=== PATIENT | female | born 1980 | race Hispanic/Latino ===

== ENCOUNTER 2018-04-09 05:49 | Observation (INO) | payer BC ==
[~2018-04-09] VITALS: Ht 167.6 cm; Wt 80.3 kg
[2018-04-09] VITALS (7 sets, daily range): BP systolic 108–118; BP diastolic 63–72
[~2018-04-09 05:49] MED LIST: LINZESS PO; OXYBUTYNIN CHLOR5 M1 PO; VIT D PO
--- OUTSIDE RECORDS SUMMARY | 2018-04-09 05:53 | XMS REPORT | CCD ---
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 Phone Emmanuel Alford CP Allergies, Adverse Reactions, Alerts Substance Reaction Status NKDA Active Medications Medication Instructions Start Date End Date Status ferrous sulfate 325 mg, 1 tab, Route: PO, Drug 07/11/2012 07/12/2012 Discontinued form: ECTAB, BID, Dosing Weight 81.818, kg, Start date: 07/11/12 17:00:00, Duration: 30 day, Stop date: 08/10/12 9:00:00 Zofran 4 mg, 2 mL, Route: IVP, Drug form: 07/10/2012 07/12/2012 Discontinued INJ, PRN, PRN Nausea, Start date: 07/10/12 10:03:00, Duration: 24 hr, Stop date: 07/17/12 10:02:00 naloxone 0.4 mg, 1 mL, Route: IVP, Drug 07/10/2012 07/12/2012 Discontinued form: INJ, PRN, PRN Narcotic Reversal, Start date: 07/10/12 10:03:00, Duration: 24 hr, Stop date: 07/17/12 10:02:00 Motrin 600 mg, 1 tab, Route: PO, Drug 07/10/2012 07/12/2012 Discontinued form: TAB, Q6H-02, Start date: 07/10/12 14:00:00, Duration: 24 hr, Stop date: 07/17/12 8:00:00 ketorolac 30 mg/mL 30 mg, 1 mL, Route: IVP, Drug form: 07/10/2012 07/10/2012 Completed injectable solution INJ, Q6H-02, Start date: 07/10/12 14:00:00, Duration: 2 doses or times, Stop date: 07/10/12 20:00:00 PNV-DHA Plus 1 cap, Route: PO, Drug Form: CAP, 07/11/2012 07/10/2012 Discontinued Dosing Weight 81.818, kg, Daily, Start date: 07/11/12 9:00:00, Duration: 30 day, Stop date: 08/09/12 9:00:00 PNV-DHA Plus oral Substitution Allowed, Maintenance 07/10/2012 Ordered capsule [place]ama 5/325 oral 1-2 tab, PO, Q4-6H, PRN, 30 tab, 07/12/2012 07/17/2012 Ordered tablet Pain, Substitution Allowed, Maintenance ibuprofen 600 mg 600 mg, PO, Q6H, PRN, Take with 07/12/2012 07/20/2012 Ordered oral tablet food, 30 tab, Pain, Substitution Allowed Take with food Colace 100 mg oral 100 mg, 1 cap, PO, BID, PRN, 20 07/12/2012 Ordered capsule cap, Constipation, Substitution Allowed, CAP Phenergan 12.5 mg, Route: IVPB, ONCE, Dosing 07/10/2012 07/10/2012 Completed Weight 81.818, kg, Start date: 07/10/12 13:01:00, Stop date: 07/10/12 13:01:00 Saline Flush 0.9% 5 ml, Route: IVP, Drug Form: INJ, 07/10/2012 07/12/2012 Discontinued Dosing Weight 81.818, kg, PRN, PRN Line Flush, Start date: 07/10/12 9:22:00, Duration: 30 day, Stop date: 08/09/12 9:21:00 Saline Flush 0.9% 5 ml, Route: IVP, Drug Form: INJ, 07/10/2012 07/12/2012 Discontinued Dosing Weight 81.818, kg, Q12H, Start date: 07/10/12 21:00:00, Duration: 30 day, Stop date: 08/09/12 9:00:00 1 tab, Route: PO, Drug Form: TAB, 07/11/2012 07/12/2012 Discontinued Multivitamins oral Dosing Weight 81.818, kg, Daily, tablet Start date: 07/11/12 9:00:00, Duration: 30 day, Stop date: 08/09/12 9:00:00 lanolin topical 1 appl, Route: TOP, PRN, Drug form: 07/10/2012 07/12/2012 Discontinued cream OINT, PRN Other -See Comment, Start date: 07/10/12 9:22:00, Duration: 30 day, Stop date: 08/09/12 9:21:00 acetaminophen 650 mg, 20.3 mL, Route: PO, Drug 07/10/2012 07/12/2012 Discontinued form: LIQ, Q4H, Dosing Weight 81.818, kg, PRN Other -See Comment, Start date: 07/10/12 9:22:00, Duration: 30 day, Stop date: 08/09/12 9:21:00 zolpidem 5 mg, 1 tab, Route: PO, Drug form: 07/10/2012 07/12/2012 Discontinued TAB, Bedtime, Dosing Weight 81.818, kg, PRN Insomnia, Start date: 07/10/12 9:22:00, Duration: 30 day, Stop date: 08/09/12 9:21:00 simethicone 160 mg, 2 tab, Route: PO, Drug 07/10/2012 07/12/2012 Discontinued form: CHEWTAB, Q8H, Dosing Weight 81.818, kg, PRN Gas, Start date: 07/10/12 9:22:00, Duration: 30 day, Stop date: 08/09/12 9:21:00 M-M-R II 0.5 ml, Route: SUB-Q, Drug Form: 07/10/2012 07/12/2012 Discontinued PDR/INJ, Dosing Weight 81.818, kg, ONCALL, Start date: 07/10/12 10:00:00, Duration: 1 doses or times, Stop date: 07/11/12 0:00:00 cefazolin 2 gm, 100 mL, Route: IVPB, Drug 07/10/2012 07/10/2012 Completed form: INJ, ONCALL, Dosing Weight 81.818, kg, Start date: 07/10/12 7:00:00, Duration: 1 doses or times azithromycin 500 mg, Route: IVPB, Drug form: 07/10/2012 07/10/2012 Completed PDR/INJ, ONCALL, Dosing Weight 81.818, kg, Start date: 07/10/12 7:00:00, Duration: 1 doses or times acetaminophen-hydroc 1 tab, Route: PO, Drug Form: TAB, 07/10/2012 07/12/2012 Discontinued odone 325 mg-5 mg Dosing Weight 81.818, kg, Q4H, PRN oral tablet Pain Score 1-3, Start date: 07/10/12 9:22:00, Duration: 30 day, Stop date: 08/09/12 9:21:00 acetaminophen-hydroc 2 tab, Route: PO, Drug Form: TAB, 07/10/2012 07/12/2012 Discontinued odone 325 mg-5 mg Dosing Weight 81.818, kg, Q4H, PRN oral tablet Pain Score 4-6, Start date: 07/10/12 9:22:00, Duration: 30 day, Stop date: 08/09/12 9:21:00 ibuprofen 800 mg, 1 tab, Route: PO, Drug 07/10/2012 07/12/2012 Discontinued form: TAB, Q8H, Dosing Weight 81.818, kg, PRN Other -See Comment, Start date: 07/10/12 9:22:00, Duration: 30 day, Stop date: 08/09/12 9:21:00 bisacodyl 15 mg, 3 tab, Route: PO, Drug form: 07/10/2012 07/12/2012 Discontinued ECTAB, Daily, Dosing Weight 81.818, kg, PRN Other -See Comment, Start date: 07/10/12 9:22:00, Duration: 30 day, Stop date: 08/09/12 9:21:00 bisacodyl 10 mg, 1 supp, Route: UT, Drug 07/10/2012 07/12/2012 Discontinued form: SUPP, PRN, Dosing Weight 81.818, kg, PRN Other -See Comment, Start date: 07/10/12 9:22:00, Duration: 30 day, Stop date: 08/09/12 9:21:00 Lactated Ringers 20 unit, 1,000 mL, Rate: 125 ml/hr, 07/10/2012 07/11/2012 Completed 1000ml+Pitocin 20 Infuse over: 8 hr, Dosing Weight units IV (Premix) 20 81.818, kg, Route: IV, Total unit Volume: 1,000 mL, Start date: 07/10/12 9:22:00, Duration: 2 doses or times, Stop date: 07/11/12 1:21:00, Replace Every: 8 hr Lactated Ringers IV 1,000 mL, Rate: 100 ml/hr, Infuse 07/10/2012 07/12/2012 Discontinued 1,000 mL over: 10 hr, Route: IV, Dosing Weight 81.818 kg, Total Volume: 1,000, Start date: 07/10/12 9:22:00, Duration: 30 day, Stop date: 08/09/12 9:21:00, PRN to maintain IV access Lactated Ringers 1,000 mL, Rate: 125 ml/hr, Infuse 07/10/2012 07/10/2012 Discontinued Injection IV 1,000 over: 8 hr, Route: IV, Dosing mL Weight 81.818 kg, Total Volume: 1,000, Start date: 07/10/12 6:48:00, Duration: 30 day, Stop date: 08/09/12 6:47:00 carboprost 250 microgram, 1 mL, Route: IM, 07/10/2012 07/10/2012 Discontinued Drug form: INJ, ONCALL, Dosing Weight 81.818, kg, Start date: 07/10/12 7:00:00, Duration: 30 day, Stop date: 08/09/12 6:59:00 methylergonovine 0.2 mg, 1 mL, Route: IM, Drug form: 07/10/2012 07/10/2012 Discontinued INJ, ONCALL, Dosing Weight 81.818, kg, Start date: 07/10/12 7:00:00, Duration: 30 day, Stop date: 08/09/12 6:59:00 citric acid-sodium 30 ml, Route: PO, Drug Form: SOLN, 07/10/2012 07/10/2012 Discontinued citrate Dosing Weight 81.818, kg, ONCE, Start date: 07/10/12 6:48:00, Duration: 1 doses or times, Stop date: 07/10/12 6:48:00 misoprostol 1,000 microgram, 5 tab, Route: UT, 07/10/2012 07/10/2012 Discontinued Drug form: TAB, ONCALL, Dosing Weight 81.818, kg, Start date: 07/10/12 7:00:00, Duration: 30 day, Stop date: 08/09/12 6:59:00 metoclopramide 10 mg, 2 mL, Route: IVP, Drug form: 07/10/2012 07/10/2012 Discontinued ALFREDO RAMIREZ, Dosing Weight 81.818, kg, Start date: 07/10/12 7:00:00, Duration: 30 day, Stop date: 08/09/12 6:59:00 Lactated Ringers 20 unit, 1,000 mL, Rate: 125 ml/hr, 07/10/2012 07/10/2012 Discontinued 1000ml+Oxytocin 20 Infuse over: 8 hr, Dosing Weight units IV (Premix) 20 81.818, kg, Route: IV, Total unit Volume: 1,000 mL, Start date: 07/10/12 6:48:00, Duration: 2 day, Stop date: 07/12/12 6:47:00, Replace Every: 8 hr terbutaline 0.25 mg, 0.25 mL, Route: SUB-Q, 07/10/2012 07/10/2012 Discontinued Drug form: INJ, ONCALL, Dosing Weight 81.818, kg, PRN Other -See Comment, Start date: 07/10/12 6:48:00, Duration: 1 doses or times, Stop date: Limited # of times ondansetron 4 mg, 2 mL, Route: IVP, Drug form: 07/10/2012 07/10/2012 Discontinued INJ, Q8H, Dosing Weight 81.818, kg, PRN Nausea & Vomiting, Start date: 07/10/12 6:48:00, Duration: 30 day, Stop date: 08/09/12 6:47:00 morphine Sulfate 2 mg, 1 mL, Route: IVP, Drug form: 07/10/2012 07/10/2012 Discontinued INJ, Q2H, Dosing Weight 81.818, kg, PRN Pain Score 6-10, Start date: 07/10/12 6:48:00, Duration: 30 day, Stop date: 08/09/12 6:47:00 Vital Signs Most recent to oldest [Reference Range]: 1 Height 167.64 cm (07/10/2012 06:46:00) Weight 81.818 kg (07/10/2012 06:46:00) Results BLOOD BANK RESULTS Most recent to oldest [Reference Range]: 1 2 ABO/Rh A POS *Unknown* (07/10/2012 07:15:00) Antibody Scrn Negative (07/10/2012 07:15:00) HEMATOLOGY Most recent to oldest [Reference Range]: 1 2 WBC [3.7-10.4 K/CMM] 9.9 K/CMM (07/10/2012 07:06:00) RBC [4.20-5.40 M/CMM] 4.41 M/CMM (07/10/2012 07:06:00) Hgb [12.0-16.0 g/dL] 9.5 g/dL *LOW* (07/11/2012 03:50:45) 12.0 g/dL (07/10/2012 07:06:00) Hct [36.0-48.0 %] 29.1 % *LOW* (07/11/2012 03:50:45) 35.5 % *LOW* (07/10/2012 07:06:00) MCV [81.0-99.0 fL] 80.6 fL *LOW* (07/10/2012 07:06:00) MCH [27.0-31.0 pg] 27.2 pg (07/10/2012 07:06:00) MCHC [32.0-36.0 g/dL] 33.7 g/dL (07/10/2012 07:06:00) RDW [11.5-14.5 %] 14.6 % *HI* (07/10/2012 07:06:00) Platelet [133-450 K/CMM] 210 K/CMM (07/10/2012 07:06:00) MPV [7.4-10.4 fL] 9.2 fL (07/10/2012 07:06:00) Segs [45.0-75.0 %] 54.9 % (07/10/2012 07:06:00) Lymphocytes [20.0-40.0 %] 30.4 % (07/10/2012 07:06:00) Monocytes [2.0-12.0 %] 11.8 % (07/10/2012 07:06:00) Eosinophils [0.0-4.0 %] 2.9 % (07/10/2012 07:06:00) Segs-Bands # [1.5-8.1 K/CMM] 5.4 K/CMM (07/10/2012 07:06:00) Lymphocytes # [1.0-5.5 K/CMM] 3.0 K/CMM (07/10/2012 07:06:00) Monocytes # [0.0-0.8 K/CMM] 1.2 K/CMM *HI* (07/10/2012 07:06:00) Eosinophils # [0.0-0.5 K/CMM] 0.3 K/CMM (07/10/2012 07:06:00) IMMUNOLOGY Most recent to oldest [Reference Range]: 1 2 RPR [Non Reactive] Non Reactive (07/10/2012 07:06:00) HIV 1/2 Ab (LD) [Negative] Negative *NA* (07/10/2012 07:06:00) Hep Bs Ag [Negative] Negative *NA* (07/10/2012 07:06:00)
--- OUTSIDE RECORDS SUMMARY | 2018-04-09 05:53 | XMS REPORT ---
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
--- OUTSIDE RECORDS SUMMARY | 2018-04-09 05:53 | XMS REPORT | Continuity of Care Document ---
Author Author [facility] Interface Address Unknown Phone Unavailable Problems Problem Status Onset Date Classification Date Reported Comments Source DX: N92.0 Active 02/17/2018 [facility] Active 01/16/2012 [facility] Family history of colon cancer Active Problem 01/14/2018 [facility] Constipation, unspecified constipation type Active Problem 01/14/2018 [facility] OAB Active Problem 01/14/2018 [facility] Migraine without aura and without status migrainosus, not intractable Active Problem 01/14/2018 [facility] DELIV NOS-UNSP Active [facility] Medications Medication Details Route Status Patient Instructions Ordering Provider Order Date Source [place] 5/325 oral tablet 1-2 tab, PO, Q4-6H, PRN, 30 tab, Pain, Substitution Allowed, Maintenance PO Active Prashanth 07/12/2012 [facility] Colace 100 mg oral capsule 100 mg, 1 cap, PO, BID, PRN, 20 cap, Constipation, Substitution Allowed, CAP PO Active Prashanth 07/12/2012 [facility] ibuprofen 600 mg oral tablet 600 mg, PO, Q6H, PRN, Take with food, 30 tab, Pain, Substitution AllowedTake with food PO Active Prashanth 07/12/2012 [facility] ferrous sulfate 325 mg, 1 tab, Route: PO, Drug form: ECTAB, BID, Dosing Weight 81.818, kg, Start date: 07/11/12 17:00:00, Duration: 30 day, Stop date: 08/10/12 9:00:00 PO No Longer Active Ezedinma 07/11/2012 [facility] PNV-DHA Plus 1 cap, Route: PO, Drug Form: CAP, Dosing Weight 81.818, kg, Daily, Start date: 07/11/12 9:00:00, Duration: 30 day, Stop date: 08/09/12 9:00:00 PO No Longer Active Prashanth 07/11/2012 [facility] Multivitamins oral tablet 1 tab, Route: PO, Drug Form: TAB, Dosing Weight 81.818, kg, Daily, Start date: 07/11/12 9:00:00, Duration: 30 day, Stop date: 08/09/12 9:00:00 PO No Longer Active Ezedinma 07/11/2012 [facility] Saline Flush 0.9% 5 ml, Route: IVP, Drug Form: INJ, Dosing Weight 81.818, kg, Q12H, Start date: 07/10/12 21:00:00, Duration: 30 day, Stop date: 08/09/12 9:00:00 IVP No Longer Active Ezedinma 07/11/2012 [facility] Motrin 600 mg, 1 tab, Route: PO, Drug form: TAB, Q6H-02, Start date: 07/10/12 14:00:00, Duration: 24 hr, Stop date: 07/17/12 8:00:00 PO No Longer Active Prashanth 07/10/2012 [facility] ketorolac 30 mg/mL injectable solution 30 mg, 1 mL, Route: IVP, Drug form: INJ, Q6H-02, Start date: 07/10/12 14:00:00, Duration: 2 doses or times, Stop date: 07/10/12 20:00:00 IVP No Longer Active Prashanth 07/10/2012 [facility] Phenergan 12.5 mg, Route: IVPB, ONCE, Dosing Weight 81.818, kg, Start date: 07/10/12 13:01:00, Stop date: 07/10/12 13:01:00 IVPB No Longer Active Dais 07/10/2012 [facility] PNV-DHA Plus oral capsule Substitution Allowed, Maintenance Active Prashanth 07/10/2012 [facility] Zofran 4 mg, 2 mL, Route: IVP, Drug form: INJ, PRN, PRN Nausea, Start date: 07/10/12 10:03:00, Duration: 24 hr, Stop date: 07/17/12 10:02:00 IVP No Longer Active Prashanth 07/10/2012 [facility] naloxone 0.4 mg, 1 mL, Route: IVP, Drug form: INJ, PRN, PRN Narcotic Reversal, Start date: 07/10/12 10:03:00, Duration: 24 hr, Stop date: 07/17/12 10:02:00 IVP No Longer Active Prashanth 07/10/2012 [facility] M-M-R II 0.5 ml, Route: SUB-Q, Drug Form: PDR/INJ, Dosing Weight 81.818, kg, ONCALL, Start date: 07/10/12 10:00:00, Duration: 1 doses or times, Stop date: 07/11/12 0:00:00 SUB-Q No Longer Active Ezedinma 07/10/2012 [facility] Saline Flush 0.9% 5 ml, Route: IVP, Drug Form: INJ, Dosing Weight 81.818, kg, PRN, PRN Line Flush, Start date: 07/10/12 9:22:00, Duration: 30 day, Stop date: 08/09/12 9:21:00 IVP No Longer Active Ezedinma 07/10/2012 [facility] lanolin topical cream 1 appl, Route: TOP, PRN, Drug form: OINT, PRN Other -See Comment, Start date: 07/10/12 9:22:00, Duration: 30 day, Stop date: 08/09/12 9:21:00 TOP No Longer Active Ezedinma 07/10/2012 [facility] acetaminophen 650 mg, 20.3 mL, Route: PO, Drug form: LIQ, Q4H, Dosing Weight 81.818, kg, PRN Other -See Comment, Start date: 07/10/12 9:22:00, Duration: 30 day, Stop date: 08/09/12 9:21:00 PO No Longer Active Ezedinma 07/10/2012 [facility] zolpidem 5 mg, 1 tab, Route: PO, Drug form: TAB, Bedtime, Dosing Weight 81.818, kg, PRN Insomnia, Start date: 07/10/12 9:22:00, Duration: 30 day, Stop date: 08/09/12 9:21:00 PO No Longer Active Ezedinma 07/10/2012 [facility] simethicone 160 mg, 2 tab, Route: PO, Drug form: CHEWTAB, Q8H, Dosing Weight 81.818, kg, PRN Gas, Start date: 07/10/12 9:22:00, Duration: 30 day, Stop date: 08/09/12 9:21:00 PO No Longer Active Ezedinma 07/10/2012 [facility] acetaminophen-hydrocodone 325 mg-5 mg oral tablet 1 tab, Route: PO, Drug Form: TAB, Dosing Weight 81.818, kg, Q4H, PRN Pain Score 1-3, Start date: 07/10/12 9:22:00, Duration: 30 day, Stop date: 08/09/12 9:21:00 PO No Longer Active Ezedinma 07/10/2012 [facility] ibuprofen 800 mg, 1 tab, Route: PO, Drug form: TAB, Q8H, Dosing Weight 81.818, kg, PRN Other -See Comment, Start date: 07/10/12 9:22:00, Duration: 30 day, Stop date: 08/09/12 9:21:00 PO No Longer Active Ezedinma 07/10/2012 [facility] bisacodyl 15 mg, 3 tab, Route: PO, Drug form: ECTAB, Daily, Dosing Weight 81.818, kg, PRN Other -See Comment, Start date: 07/10/12 9:22:00, Duration: 30 day, Stop date: 08/09/12 9:21:00 PO No Longer Active Ezedinma 07/10/2012 [facility] Lactated Ringers 1000ml+Pitocin 20 units IV (Premix) 20 unit 20 unit, 1,000 mL, Rate: 125 ml/hr, Infuse over: 8 hr, Dosing Weight 81.818, kg, Route: IV, Total Volume: 1,000 mL, Start date: 07/10/12 9:22:00, Duration: 2 doses or times, Stop date: 07/11/12 1:21:00, Replace Every: 8 hr IV No Longer Active Ezedinma 07/10/2012 [facility] Lactated Ringers IV 1,000 mL 1,000 mL, Rate: 100 ml/hr, Infuse over: 10 hr, Route: IV, Dosing Weight 81.818 kg, Total Volume: 1,000, Start date: 07/10/12 9:22:00, Duration: 30 day, Stop date: 08/09/12 9:21:00, PRN to maintain IV access IV No Longer Active Ezedinma 07/10/2012 [facility] cefazolin 2 gm, 100 mL, Route: IVPB, Drug form: INJ, ONCALL, Dosing Weight 81.818, kg, Start date: 07/10/12 7:00:00, Duration: 1 doses or times IVPB No Longer Active Prashanth 07/10/2012 [facility] azithromycin 500 mg, Route: IVPB, Drug form: PDR/INJ, ONCALL, Dosing Weight 81.818, kg, Start date: 07/10/12 7:00:00, Duration: 1 doses or times IVPB No Longer Active Prashanth 07/10/2012 [facility] carboprost 250 microgram, 1 mL, Route: IM, Drug form: INJ, ONCALL, Dosing Weight 81.818, kg, Start date: 07/10/12 7:00:00, Duration: 30 day, Stop date: 08/09/12 6:59:00 IM No Longer Active Prashanth 07/10/2012 [facility] methylergonovine 0.2 mg, 1 mL, Route: IM, Drug form: INJ, ONCALL, Dosing Weight 81.818, kg, Start date: 07/10/12 7:00:00, Duration: 30 day, Stop date: 08/09/12 6:59:00 IM No Longer Active Prashanth 07/10/2012 [facility] misoprostol 1,000 microgram, 5 tab, Route: MT, Drug form: TAB, ONCALL, Dosing Weight 81.818, kg, Start date: 07/10/12 7:00:00, Duration: 30 day, Stop date: 08/09/12 6:59:00 MT No Longer Active Prashanth 07/10/2012 [facility] metoclopramide 10 mg, 2 mL, Route: IVP, Drug form: INJ, ONCALL, Dosing Weight 81.818, kg, Start date: 07/10/12 7:00:00, Duration: 30 day, Stop date: 08/09/12 6:59:00 IVP No Longer Active Prashanth 07/10/2012 [facility] Lactated Ringers Injection IV 1,000 mL 1,000 mL, Rate: 125 ml/hr, Infuse over: 8 hr, Route: IV, Dosing Weight 81.818 kg, Total Volume: 1,000, Start date: 07/10/12 6:48:00, Duration: 30 day, Stop date: 08/09/12 6:47:00 IV No Longer Active Prashanth 07/10/2012 [facility] citric acid-sodium citrate 30 ml, Route: PO, Drug Form: SOLN, Dosing Weight 81.818, kg, ONCE, Start date: 07/10/12 6:48:00, Duration: 1 doses or times, Stop date: 07/10/12 6:48:00 PO No Longer Active Prashanth 07/10/2012 [facility] Lactated Ringers 1000ml+Oxytocin 20 units IV (Premix) 20 unit 20 unit, 1,000 mL, Rate: 125 ml/hr, Infuse over: 8 hr, Dosing Weight 81.818, kg, Route: IV, Total Volume: 1,000 mL, Start date: 07/10/12 6:48:00, Duration: 2 day, Stop date: 07/12/12 6:47:00, Replace Every: 8 hr IV No Longer Active Prashanth 07/10/2012 [facility] terbutaline 0.25 mg, 0.25 mL, Route: SUB-Q, Drug form: INJ, ONCALL, Dosing Weight 81.818, kg, PRN Other -See Comment, Start date: 07/10/12 6:48:00, Duration: 1 doses or times, Stop date: Limited # of times SUB-Q No Longer Active Prashanth 07/10/2012 [facility] ondansetron 4 mg, 2 mL, Route: IVP, Drug form: INJ, Q8H, Dosing Weight 81.818, kg, PRN Nausea & Vomiting, Start date: 07/10/12 6:48:00, Duration: 30 day, Stop date: 08/09/12 6:47:00 IVP No Longer Active Prashanth 07/10/2012 [facility] morphine Sulfate 2 mg, 1 mL, Route: IVP, Drug form: INJ, Q2H, Dosing Weight 81.818, kg, PRN Pain Score 6-10, Start date: 07/10/12 6:48:00, Duration: 30 day, Stop date: 08/09/12 6:47:00 IVP No Longer Active Prashanth 07/10/2012 [facility] Sumatriptan 1 spray as needed one time Nasally Active 20 mg Nasally Once a day [facility] Allergies, Adverse Reactions, Alerts Substance Category Reaction Severity Reaction type Status Date Reported Comments Source Immunizations Immunization Date Given Site Status Last Updated Comments Source Results Order Name Results Value Reference Range Date Interpretation Comments Source Pelvis w Pelvis Transvaginal US Pelvis w Pelvis Transvaginal US PROCEDURE: Transabdominal and transvaginal pelvic ultrasound. INDICATION: - Excessive and frequent menstruation with regular cycle. Last menstrual period 01/19/2018. COMPARISON: None. TECHNIQUE: Real-time grayscale and Doppler ultrasound of the pelvis was obtained via transabdominal approach. Transvaginal approach was also utilized to try to better evaluate the endometrium and adnexal regions. FINDINGS: Uterus: The retroverted uterus measures 6.3 cm. No discrete mass is seen. The endometrial stripe measures 5 mm in thickness. Ovaries \T\ Adnexa: The right ovary measures 3.2 x 2.1 x 2.3 cm and the left is not visualized no discrete cyst or mass is seen. Vascular Doppler velocity waveforms are preserved to the right ovary. No free fluid is seen. IMPRESSION: 1. Normal appearance of the uterus and right ovary. 2. Left ovary not visualized. 02/18/2018 - - Read by: Isaak Neal MD Dictated Date/time: 02/19/18 14:03 Electronically Signed by: Isaak Neal MD 02/19/18 14:05 FINAL REPORT [facility] HEMATOLOGY Hgb 9.5 g/dL 12.0 - 16.0 07/11/2012 LOW [facility] HEMATOLOGY Hct 29.1 % 36.0 - 48.0 07/11/2012 LOW [facility] BLOOD BANK RESULTS Antibody Scrn Negative (07/10/2012 07:15:00) 07/10/2012 Normal [facility] BLOOD BANK RESULTS ABO/Rh A POS 07/10/2012 Unknown [facility] HEMATOLOGY Monocytes # 1.2 K/CMM 0.0 - 0.8 07/10/2012 [facility] HEMATOLOGY Lymphocytes # 3.0 K/CMM 1.0 - 5.5 07/10/2012 [facility] HEMATOLOGY Segs-Bands # 5.4 K/CMM 1.5 - 8.1 07/10/2012 [facility] HEMATOLOGY Eosinophils # 0.3 K/CMM 0.0 - 0.5 07/10/2012 [facility] HEMATOLOGY Lymphocytes 30.4 % 20.0 - 40.0 07/10/2012 [facility] HEMATOLOGY Monocytes 11.8 % 2.0 - 12.0 07/10/2012 [facility] HEMATOLOGY Eosinophils 2.9 % 0.0 - 4.0 07/10/2012 [facility] HEMATOLOGY Segs 54.9 % 45.0 - 75.0 07/10/2012 [facility] HEMATOLOGY RBC 4.41 M/CMM 4.20 - 5.40 07/10/2012 [facility] HEMATOLOGY Hgb 12.0 g/dL 12.0 - 16.0 07/10/2012 [facility] HEMATOLOGY WBC 9.9 K/CMM 3.7 - 10.4 07/10/2012 [facility] HEMATOLOGY Hct 35.5 % 36.0 - 48.0 07/10/2012 [facility] HEMATOLOGY RDW 14.6 % 11.5 - 14.5 07/10/2012 [facility] HEMATOLOGY MCV 80.6 fL 81.0 - 99.0 07/10/2012 [facility] HEMATOLOGY MCHC 33.7 g/dL 32.0 - 36.0 07/10/2012 [facility] HEMATOLOGY MCH 27.2 pg 27.0 - 31.0 07/10/2012 [facility] HEMATOLOGY MPV 9.2 fL 7.4 - 10.4 07/10/2012 [facility] HEMATOLOGY Platelet 210 K/CMM 133 - 450 07/10/2012 [facility] IMMUNOLOGY RPR Non Reactive (07/10/2012 07:06:00) Non Reactive 07/10/2012 [facility] IMMUNOLOGY Hep Bs Ag Negative *NA* (07/10/2012 07:06:00) Negative 07/10/2012 NA [facility] IMMUNOLOGY HIV 1/2 Ab (LD) Negative *NA* (07/10/2012 07:06:00) Negative 07/10/2012 NA [facility] Vital Signs Vital Sign Value Date Comments Source Weight 81.818 07/10/2012 [facility] Height 167.64 cm 07/10/2012 [facility] Encounters Location Location Details Encounter Type Encounter Number Reason For Visit Attending Provider ADM Date DC Date Status Source [facility] Inpatient [id number] GABBIE APONTE 07/10/2012 07/12/2012 Active [facility] Procedures Procedure Code Date Perfomer Comments Source
--- OUTSIDE RECORDS SUMMARY | 2018-04-09 05:53 | XMS REPORT ---
Author Author Shayna Guillory Organization [employer] Address Unknown Phone Unavailable Care Team Providers Care Blueprint Clerk Name Role Phone Shayna Guillory CP Unavailable Allergies No Known Allergies Problems Problem Type Condition Code Onset Dates Condition Status Problem Family history of colon cancer Z80.0 Active Problem Constipation, unspecified constipation type K59.00 Active Problem OAB (overactive bladder) N32.81 Active Problem Migraine without aura and without status migrainosus, not intractable G43.009 Active Medications Medication Code System Code Instructions Start Date End Date Status Dosage Sumatriptan [facility] [id number] 20 mg Nasally Once a day Active 1 spray as needed one time Results No Known Results Summary Purpose [employer] Submission
[2018-04-09] MEDS ORDERED: CEFAZOLIN SOD 1 GM/NS 50ML 50 ML IV ONE (06:05)
--- NOTE | 2018-04-09 07:10 | NUR ---
SPIRITUAL CARE - Pre-Surgery Assessment: Pt in bed. Pt reported supportive attention from family and friends. Intervention: I provided pastoral presence, hospitality, and sympathetic listening. I acquainted pt with availability of ophthalmic asst while hospitalized. Outcome: Pt expressed appreciation for visit. No need for follow up indicated at this time. [facility]ual [facility] Department O: [phone] Pager: [phone] ([phone] number calling from)
[2018-04-09] MEDS ORDERED: HYDROMORPHONE 2MG/ML 2 MG/ML ML ONE (09:09)
[2018-04-09] MEDS ORDERED: HYDROMORPHONE 2MG/ML 2 MG/ML ML IV PRN (11:30)
[2018-04-09] MEDS ORDERED: ACETAMINOPHEN 325 MG TAB PO PRN (11:30)
[2018-04-09] MEDS ORDERED: ONDANSETRON HCL INJ 2MG/ML 2ML 2 MG/ML VIAL ONE ×2 (11:44→17:35)
[2018-04-09] MEDS: LACTATED RINGER'S 1,000 ML IV SCH ×2 (12:00→21:33)
[2018-04-09] MEDS ORDERED: PROMETHAZINE HCL (IM) 25 MG/ML VIAL ONE (12:19)
--- NOTE | 2018-04-09 13:24 | NUR ---
Received patient from Recovery phase 2. AAOX3 to time, person, place. Respirations even and unlabored. Dressing to lower abdomen clean, dry, and intact.LUCRETIA drain to bilateral hips draining sanguineous drainage. Instructed to use call light for assistance. Will continue to monitor.
[2018-04-09] MEDS ORDERED: HYDROCODONE/APAP 7.5MG-325MG 1 EA TAB ONE (14:11)
[2018-04-09] MEDS: HYDROCODONE/APAP 7.5MG-325MG 1 EA TAB PO PRN ×2 (14:11→19:45)
--- NOTE | 2018-04-09 15:25 | NUR ---
Report given to Perla SETH of patient's status. Transferred to room 104 via bed. No s/s of acute distress noted. Notified of patient's transfer
[2018-04-09] MEDS: CEFAZOLIN SOD 1 GM/NS 50ML 50 ML IV SCH (16:29)
[2018-04-09] MEDS: DOCUSATE SODIUM 100 MG CAP PO SCH (16:29)
[2018-04-09] MEDS: ONDANSETRON HCL 4 MG ORAL DISINTEGRATING TAB SL PRN ×2 (16:32→21:33)
[2018-04-09] MEDS ORDERED: ROCURONIUM BROMIDE 10 MG/ML 5ML VIAL ONE (17:35)
[2018-04-09] MEDS ORDERED: GLYCOPYRROLATE INJ 1MG/ 5 ML SYR ONE (17:35)
[2018-04-09] MEDS ORDERED: NEOSTIGMINE 5 MG/5ML SYR ONE (17:35)
[2018-04-09] MEDS ORDERED: PROPOFOL IV EMULSION 10 MG/ML 20 ML VIAL ONE (17:35)
[2018-04-09] MEDS ORDERED: LIDOCAINE HCL 2% LOCAL INJ 5 ML SDV VIAL INJ ONE (17:35)
[2018-04-09] MEDS ORDERED: SEVOFLURANE INHAL SOLN 250 ML PEN BTL ONE (17:35)
[2018-04-09] MEDS ORDERED: DEXAMETHASONE SOD PHOS INJ 4 MG/ML VIAL ONE (17:35)
[2018-04-09] MEDS ORDERED: ACETAMINOPHEN 1000 MG/100 ML IV ONE (17:35)
[2018-04-09] MEDS ORDERED: MIDAZOLAM HCL 2 MG/2 ML VIAL ONE (17:51)
[2018-04-09] MEDS ORDERED: FENTANYL CITRATE/PF 100MCG/2 ML INJ ONE (17:51)
--- NOTE | 2018-04-09 19:17 | NUR ---
received patient aaox3, denies needs at this time. lower abd drsg c/d/i, x2 LUCRETIA drains. bed locked and in lowest position, call light within easy reach.
--- NOTE | 2018-04-09 20:09 | Operative Report ---
DATE OF PROCEDURE: 04/09/2018 SURGEON: Marko Inman MD PREOPERATIVE DIAGNOSES: 1. Ventral hernia. 2. Localized adiposity of abdomen. POSTOPERATIVE DIAGNOSES: 1. Ventral hernia. 2. Localized adiposity of abdomen. PROCEDURE: 1. Repair of ventral hernia. 2. Abdominoplasty. ANESTHESIA: General. HISTORY: The patient is a 38-year-old female who has had multiple C-sections via the same incision. She has a ventral fascial defect, which is symptomatic. The patient also wishes to have contouring of the anterior abdominal wall and she was made aware that this is not covered by insurance and she has made arrangements for coverage for the hospital, anesthesia, and surgery under separate cover. She has signed the [employer] consent form for said procedures. DESCRIPTION OF PROCEDURE: The patient was marked preoperatively in the holding area in the upright position. She was brought to the operating theater and after the induction of adequate general anesthesia, placement of Venodyne compression boots, and placement of a Carrera catheter, she was prepped and draped in a supine position and a time-out was performed. The midline is reinforced from the xiphoid down to the pubic symphysis and the introitus. A transverse incision was marked out approximately 7 cm from the introitus and this was carried toward the anterior-superior iliac spines. The incision was made through the skin and subcutaneous tissues. Bleeding was controlled using the electrocautery. Using the electrocautery, the incision was deepened through the subcutaneous and Booker fascia until the anterior rectus fascia was identified. Using this as a guide, the anterior skin and subcutaneous tissue was elevated off the fascia, dissecting through the area of the previous sections. There was some marked amount of deformity and incompetence of the anterior fascial wall, most notably on the left side of the midline. Skin and subcutaneous tissue were elevated using the electrocautery to the level of the umbilicus. At this point, the dissection was temporarily halted and attention turned to the release of the umbilicus. The umbilicus was brought out using skin hooks and then it was sharply circumscribed through the skin and subcutaneous tissues. It was then dissected with a generous amount of tissue around the stalk to maintain vascularity. Once the umbilicus was fully released, the dissection continued on the undersurface of the flap along the anterior rectus fascia up to the level of the xiphoid in the midline and the costal margins bilaterally. At this point, hemostasis was made absolute using the electrocautery. The ventral hernias, which there are 3, were then repaired utilizing 2-0 Ethibond in an interrupted [id number] fashion. Once all of the hernias had been repaired, attention was then turned to the performance of a plication of the diastasis recti. The distance from the xiphoid to the pubic symphysis was marked out and plication with a maximum width at the level of umbilicus corresponding to 7 to 8 cm was marked out as well. Utilizing 0 Ethibond in an interrupted [id number] fashion, the rectus fascia was plicated from the xiphoid to the level of the superior border of the umbilicus and then from inferior border of the umbilicus down to the pubic symphysis. The ventral hernia sites were located below the plication, so that there was no need for mesh. At this point, wound was copiously irrigated with bacteriostatic saline. Hemostasis was made absolute once again using electrocautery. At this juncture, the patient was then sat up for approximately 30- to 40-degree head of bed posture. The redundant skin and subcutaneous tissue of the anterior abdominal wall was marked out and was judiciously excised and the wound edge of the upper flap was made hemostatic using the electrocautery. Using curved scissors, the upper flap of the subcutaneous layer trimmed, so that the fitness matches that of the inferior portion of the incision. Hemostasis was made absolute once again using electrocautery. At this juncture, two 15-Slovenian LUCRETIA drains were placed, one above the umbilicus, one below and they were sutured to the lateral recesses of the incision using 3-0 nylon suture. At this point, the incision was closed utilizing 2-0 PDS in an interrupted buried [id number] fashion to approximate Booker fascia. Care was taken to ensure that the flap was oriented vertically through the midline. Once Booker fascia had been approximated, the deep dermis was approximated with 3-0 Monocryl in an interrupted buried fashion and then 4-0 Monocryl running subcuticular stitches used to approximate the superficial tissues. Directly over the umbilicus, a 2 cm vertical ellipse of tissue that was marked out was incised through the skin and subcutaneous tissues. Bleeding was controlled using electrocautery. The skin and subcutaneous tissue were then removed and the area of the new umbilical site was then defatted using the electrocautery. At this point, the umbilicus was brought out on to the anterior abdominal wall. 3-0 Monocryl was used in an interrupted fashion at the 3 o'clock, 6 o'clock, and 9 o'clock positions to bring the anterior abdominal wall and the umbilicus together with stitches that incorporate the anterior rectus fascia of the umbilicus and then the deep dermis. Once this was performed, the intervening spaces of dermis were sutured using 3-0 Monocryl in an interrupted buried fashion. 5-0 nylon was then used in a simple interrupted manner around the circumference of the umbilicus. At the completion of the procedure, the flap and the umbilicus were noted to be well vascularized, the incisions were hemostatic, and the drains were placed on suction. Steri-Strips were applied to the incision and sterile dressings were applied over the Steri-Strips. The umbilicus was stented with Xeroform gauze and then sterile 4 x 4's and Tegaderm was placed over it. The patient was then transferred to the stretcher and brought to the recovery room in satisfactory condition. The estimated blood loss for the procedure was approximately 100 to 125 mL. She was then admitted for overnight observation. MD ROSETTE Duncan/NIALL /[id number]
--- NOTE | 2018-04-09 21:10 | NUR ---
patient is ambulating hallway, gait is steady.
[2018-04-10] VITALS: BP 93/53
[2018-04-10] MEDS: CEFAZOLIN SOD 1 GM/NS 50ML 50 ML IV SCH ×2 (00:20→08:40)
--- NOTE | 2018-04-10 00:20 | NUR ---
WALKING ROUNDS PERFORMED, LUCRETIA DRAINS EMPTIED. PATIENT STATES PAIN IS 3/10, WILL CALL IF NEED PAIN MEDICATION. BED LOCKED AND IN LOWEST POSITION, CALL LIGHT WITHIN EASY REACH.
[2018-04-10 04:00] VITALS: BP 88/52
--- NOTE | 2018-04-10 06:25 | NUR ---
bruce cath removed with tip intact, patient tolerated well. dtv.
--- NOTE | 2018-04-10 07:00 | NUR ---
WALKING ROUNDS COMPLETE NO DISTRESS NOTED,UPDATED ON POC VOICED UNDERSTANDING, DENIES PAIN AT THIS TIME, CALL LIGHT IN REACH WILL CONTINUE OT MONITOR
[2018-04-10] MEDS: LACTATED RINGER'S 1,000 ML IV SCH (07:25)
--- NOTE | 2018-04-10 08:00 | NUR ---
DR JOSHI AT BEDSIDE, DSG CHANGED PERFORMED TOLERATED WELL
[2018-04-10 08:40] VITALS: BP 115/66
[2018-04-10] MEDS: DOCUSATE SODIUM 100 MG CAP PO SCH (08:41)
[2018-04-10 08:45] VITALS: BP 115/66
[2018-04-10] MEDS: HYDROCODONE/APAP 7.5MG-325MG 1 EA TAB PO PRN (08:50)
[2018-04-10] MEDS: ONDANSETRON HCL 4 MG ORAL DISINTEGRATING TAB SL PRN (08:51)
[2018-04-10] MEDS ORDERED: ENOXAPARIN SOD INJ 40 MG/0.4 ML SYR SC SCH (09:00)
[2018-04-10] MEDS ORDERED: ZOFRAN4 MG PO (11:21)
[2018-04-10] MEDS ORDERED: NORCO 5-325 TA1 EACH PO (11:22)
[2018-04-10] MEDS ORDERED: KEFLEX500 MG PO (11:22)
== END 2018-04-10 11:57 | disposition home or self-care (01) ==
LOC: OR 05:49 → PACU V 12:29 → MED/SURG 15:38
PROVIDERS: ADMIT Plastic Surgery; ATTEND Plastic Surgery
DX: K43.2 Incisional hernia without obstruction or gangrene (principal); E65 Localized adiposity
CPT/HCPCS: 15830; 15847; 49560; 81025; G0378 ×2; J0131; J0690 ×2; J1100; J1170; J1650 ×2; J2001; J2250; J2405; J2550; J2704; J3490; J7121 ×2; Q0162 ×2

== ENCOUNTER → 2022-11-28 | Day surgery (SDC) | payer BC, OTHER ==
[2022-11-25 16:07] LABS: ANION GAP 13.5 mmol/L (8-16); CREATININE, SERUM 0.96 mg/dL (0.57-1.11); POTASSIUM 4.5 mmol/L (3.5-5.1)
[~2022-11-28] MED LIST changes: +BACITRACIN ZINC 15 GM OINT ONE; +BUPIVACAINE HCL 0.5% INJ 30 ML VIAL INJ ONE; +CEFAZOLIN SODIUM 2 GM ONE; +DEXAMETHASONE SOD PHOS INJ 4 MG/ML SDV ONE; +FENTANYL CITRATE/PF 100MCG/2 ML INJ ONE; +GEMTESA75 MG PO; +KEFLEX500 MG PO; +KETOROLAC TROMETHAMINE 30 MG/ML VIAL ONE; +LACTATED RINGER'S 1,000 ML ONE; +LIDOCAINE HCL 2% LOCAL INJ 5 ML SDV VIAL INJ ONE; +METOCLOPRAMIDE HCL 10 MG/2ML VIAL ONE; +MIDAZOLAM HCL 2 MG/2 ML VIAL ONE; +NORCO 5-325 TA1 EACH PO; +PROPOFOL IV EMULSION 10 MG/ML 20 ML VIAL ONE; +SEVOFLURANE INHAL SOLN 250 ML PEN BTL ONE; +SPIRONOLACTONE25 MG PO; +VESICARE5 MG PO; +ZOFRAN4 MG PO
[2022-11-28 13:15] VITALS: TEMP 98.4
[2022-11-28 13:50] VITALS: BP 110/80; PULSE 76; RESP 16; O2SAT 98
== END | disposition home or self-care (01) ==
LOC: OR 10:04
PROVIDERS: ATTEND Podiatrist Foot & Ankle Surgery
DX: M77.51 Other enthesopathy of right foot and ankle (principal); K58.9 Irritable bowel syndrome, unspecified; Z01.812 Encounter for preprocedural laboratory examination; Z79.899 Other long term (current) drug therapy
CPT/HCPCS: 28108; 36415; 80048; 81025; J1100; J1885; J2001; J2250; J2704; J2765; J3010; J7121